=== PATIENT | male | born 1965 | race Caucasian/White ===

== ENCOUNTER 2022-05-14 17:56 | Emergency (ER) | payer OTHER, SELFPAY ==
--- NOTE | ~2022-05-14 | XR_ITS ---
EXAMINATION: XR HAND, RIGHT CLINICAL INFORMATION: Fourth digit laceration COMPARISON: None TECHNIQUE: PA, lateral, and oblique views of the right hand. FINDINGS: Soft tissue irregularity is present adjacent to the fourth distal phalanx. No adjacent fracture or definitive embedded radiopaque foreign bodies are noted. Soft tissue irregularity is most pronounced along the ventral aspect of the fourth distal phalanx. A 2 mm curvilinear density may represent an overlying or minimally embedded foreign body is noted along the cutaneous margin of the radial aspect of the distal portion of the second proximal phalanx. No arthropathic changes identified. XR/XR hand RT min 3V IMPRESSION: *Acute soft tissue inflammatory changes along the volar aspect of the fourth distal phalanx. No adjacent fractures or embedded radiopaque foreign bodies. *Indeterminate 2 mm curvilinear density which may represent an overlying or minimally embedded foreign body along the radial aspect of the second phalanx is detailed above. (See vaca image with annotation).
--- NOTE | 2022-05-14 18:31 | ED.WOUNDLAC ---
HPI - Wound/Laceration General Chief Complaint: Wound/Laceration <Elyse Wakefield CNP - Last Filed: 05/14/22 18:33> Stated Complaint: right ring finger laceration sent from urgent care <Elyse Wakefield CNP - Last Filed: 05/14/22 18:33> Time Seen by Provider: 05/14/22 20:25 <Elyse Wakefield CNP - Last Filed: 05/14/22 18:33> Source: patient <JUAN Quesada - Last Filed: 05/14/22 22:27> Mode of arrival: ambulatory <JUAN Quesada - Last Filed: 05/14/22 22:27> Limitations: no limitations <JUAN Quesada - Last Filed: 05/14/22 22:27> History of Present Illness HPI narrative: This is a 57-year-old male with no significant medical history presenting with laceration to right ring finger, patient tells me that he was at home using a brass wind instruments tube bender and he cut himself on a blade, does not report that the bleed was yusra. He tells me he was cutting PVC with this brass wind instruments tube bender earlier today. Does not think there is a foreign body within the laceration. Unsure of tetanus status. Reports bleeding from the site. Denies numbness and tingling. He tells me he was seen at urgent care where they told him they were unable to suture the laceration and he should come to the emergency department for x-rays as well to rule out fracture dislocation. <JUAN Quesada - Last Filed: 05/14/22 22:27> Related Data Home Medications: Previous Rx's Medication Instructions Recorded cephalexin 500 mg tablet 500 mg PO Q6H 10 days #40 tabs 05/14/22 <Elyse Wakefield CNP - Last Filed: 05/14/22 18:33> Allergies/Adverse Reactions: Allergies Allergy/AdvReac Type Severity Reaction Status Date / Time No Known Allergies Allergy Verified 05/14/22 18:31 <Elyse Wakefield CNP - Last Filed: 05/14/22 18:33> Review of Systems Review of Systems: Constitutional : No Fever, No Chills, Cardiovascular : No Chest Pain, No SOB Respiratory : No Dyspnea Gastrointestinal : No abdominal pain Musculoskeletal : No Joint Swelling Skin : No rash, positive skin laceration Neuro : No Weakness, No Numbness Psych : No SI/HI <JUAN Quesada - Last Filed: 05/14/22 22:27> Yes all other systems are reviewed and are negative <JUAN Quesada - Last Filed: 05/14/22 22:27> [facility] Past Medical History Attestation statement: The following information was validated with the patient. <JUAN Quesada - Last Filed: 05/14/22 22:27> Source: old records reviewed and nursing notes reviewed <JUAN Quesada - Last Filed: 05/14/22 22:27> Social History Social History: Social History Advance Directives: No Advance Directives Information Provided: No <Elyse Wakefield CNP - Last Filed: 05/14/22 18:33> Physical Exam Vital Signs: Vital Signs: Last Vital Signs Temp 98.4 F 05/14/22 18:32 Pulse 73 05/14/22 18:32 Resp 16 05/14/22 18:32 BP 138/66 05/14/22 18:32 Pulse Ox 99 05/14/22 18:32 BMI result Body Mass Index 28.3 <Elyse Wakefield CNP - Last Filed: 05/14/22 18:33> Vital Signs: Last Vital Signs Temp 98.4 F 05/14/22 18:32 Pulse 73 05/14/22 18:32 Resp 16 05/14/22 18:32 BP 138/66 05/14/22 18:32 Pulse Ox 99 05/14/22 18:32 BMI result Body Mass Index 28.3 Vital signs stable <JUAN Quesada - Last Filed: 05/14/22 22:27> Appearance: Alert.? Oriented X3.? No acute distress.? Head: Normocephalic, atraumatic, no step-offs or deformities Eyes: Pupils equal, round and reactive to light.? CVS: Pulses normal.? Respiratory: No respiratory distress.? Abdomen: Soft and nontender.? Skin: Skin warm and dry.? Normal skin color.? Normal skin turgor.?+ 3 cm linear laceration to the ventral aspect of right ring finger, unable to visualize any foreign bodies, I did percuss the area in unable to hear any foreign bodies. Transillumination test was done unable to visualize foreign bodies. 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 2+ radial pulses equal bilateral. No wrist drop. Normal capillary refill less than 2 seconds. Range of motion to all fingers. Neuro: Oriented X 3.? No motor deficit.? No sensory deficit. CN 2-12 intact <JUAN Quesada - Last Filed: 05/14/22 22:27> Course Course Course Narrative: This is an RME: Additional HPI, ROS, PE not included below will be deferred to primary provider. Patient is a 57-year-old male presents to emergency department as referral from urgent care. He states today sustained a laceration to the right ring finger from a tubing cutter while cleaning his work bench. Able to flex and extend the finger. Referred here as there was concern for bone involvement he states. Last tetanus vaccine unknown. Patient is right hand dominant. Plan: TDap, XR right hand <Elyse Wakefield CNP - Last Filed: 05/14/22 18:33> Reevaluation(s) Reevaluation #1: Area was sutured with 5 , 4-0 sutures, patient tolerated procedure well no complications. Lidocaine was used for local anesthetic. X-ray of the hand with acute soft tissue inflammatory changes along the volar aspect of the 4th distal phalanx, no adjacent fracture imbedded radiopaque foreign bodies. There is an indeterminate 2 mm curvilinear density which could represent an overlying her minimally imbedded foreign body along the radial aspect of the 2nd phalanx, I was unable to identify this on my exam. I did explain to patient that he may have a retained foreign body he verbalizes understanding of this. Due to mechanisms of injury patient will be discharged home on Keflex advised to return in 7-10 days for suture removal. Educated patient on diagnosis and treatment plan, answered all question, patient verbalizes understanding. At this time patient will be discharged home, advised to return with new or worsening symptoms. Educated on worrisome signs and symptoms and when to return. At this time I feel comfortable discharge home. <JUAN Quesada - Last Filed: 05/14/22 22:27> Time: 22:26 <JUAN Quesada - Last Filed: 05/14/22 22:27> Medications Administered Discontinued Medications Generic Name Dose Route Start Last Admin Trade Name Freq PRN Reason Stop Dose Admin Diphtheria/Tetanus/Acell Pertussis 0.5 ml 05/14/22 18:33 05/14/22 20:00 Diphth,Pertus(Acell),Tet Adult 0.5 Ml Syringe IM 05/14/22 18:34 0.5 ml .ONCE ONE Administration Lidocaine HCl 2 ml 05/14/22 21:26 05/14/22 21:45 Lidocaine Hcl 1 % Mpf 2 Ml Vial INFILTRATI 05/14/22 21:27 2 ml ONCE ONE Administration Lidocaine HCl 2 ml 05/14/22 21:28 05/14/22 21:45 Lidocaine Hcl 1 % Mpf 2 Ml Vial INFILTRATI 05/14/22 21:29 2 ml ONCE ONE Administration Lidocaine HCl 2 ml 05/14/22 21:28 05/14/22 21:45 Lidocaine Hcl 1 % Mpf 2 Ml Vial INFILTRATI 05/14/22 21:29 2 ml ONCE ONE Administration <Elyse Wakefield CNP - Last Filed: 05/14/22 18:33> Medications Administered Discontinued Medications Generic Name Dose Route Start Last Admin Trade Name Freq PRN Reason Stop Dose Admin Diphtheria/Tetanus/Acell Pertussis 0.5 ml 05/14/22 18:33 05/14/22 20:00 Diphth,Pertus(Acell),Tet Adult 0.5 Ml Syringe IM 05/14/22 18:34 0.5 ml .ONCE ONE Administration Lidocaine HCl 2 ml 05/14/22 21:26 05/14/22 21:45 Lidocaine Hcl 1 % Mpf 2 Ml Vial INFILTRATI 05/14/22 21:27 2 ml ONCE ONE Administration Lidocaine HCl 2 ml 05/14/22 21:28 05/14/22 21:45 Lidocaine Hcl 1 % Mpf 2 Ml Vial INFILTRATI 05/14/22 21:29 2 ml ONCE ONE Administration Lidocaine HCl 2 ml 05/14/22 21:28 05/14/22 21:45 Lidocaine Hcl 1 % Mpf 2 Ml Vial INFILTRATI 05/14/22 21:29 2 ml ONCE ONE Administration <JUAN Quesada - Last Filed: 05/14/22 22:27> Medical Decision Making Medical Decision Making MDM Narrative: 57-year-old male presents with laceration to right ring finger just prior to arrival. Not on blood thinners. Unsure tetanus status. Physical exam significant for Skin warm and dry.? Normal skin color.? Normal skin turgor.?+ 3 cm linear laceration to the ventral aspect of right ring finger, unable to visualize any foreign bodies, I did percuss the area in unable to hear any foreign bodies. Transillumination test was done unable to visualize foreign bodies. 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 2+ radial pulses equal bilateral. No wrist drop. Normal capillary refill less than 2 seconds. Range of motion to all fingers. Concerns for simple laceration, unlikely fracture, dislocation or retained foreign bodies however will rule out. Plan at this time is x-ray and repair with sutures. <JUAN Quesada - Last Filed: 05/14/22 22:27> Differential Diagnosis Differential Diagnoses: The differential diagnosis associated with the presentation includes <JUAN Quesada - Last Filed: 05/14/22 22:27> Concerns for simple laceration, unlikely fracture, dislocation or retained foreign bodies however will rule out. <JUAN Quesada - Last Filed: 05/14/22 22:27> Admission/Observation Consideration of admission/observation: Escalation of care including admission/observation considered <JUAN Quesada - Last Filed: 05/14/22 22:27> Not indicated <JUAN Quesada - Last Filed: 05/14/22 22:27> Independent Interpretation I performed an independent interpretation of an: Plain X-Ray (Concerns for simple laceration, unlikely fracture, dislocation or retained foreign bodies however will rule out.) <JUAN Quesada - Last Filed: 05/14/22 22:27> Core Measures AMI core measures followed: Yes <JUAN Quesada - Last Filed: 05/14/22 22:27> Measure exclusions: not indicated <JUAN Quesada - Last Filed: 05/14/22 22:27> Critical Care Time Critical Care Time Critical Care Time: No <JUAN Quesada - Last Filed: 05/14/22 22:27> Discharge Plan Discharge Clinical Impression: Laceration, Retained foreign body <Elyse Wakefield CNP - Last Filed: 05/14/22 18:33> Patient Disposition: Home, Self-Care <Elyse Wakefield CNP - Last Filed: 05/14/22 18:33> Additional Instructions: Take your medications as prescribed. If you were prescribed antibiotics today, it is important that you take your medication to their entirety, do not skip any doses, do not finish them early. Follow-up with your primary care provider this week. Return to the emergency department with new or worsening symptoms. Such as fevers, chills, chest pain, shortness of breath, nausea, vomiting, dizziness, headache, vision changes, lethargy In case of emergency call 911 Return in 7-10 days for suture removal. You got your tetanus shot today! XR/XR hand RT min 3V IMPRESSION: *Acute soft tissue inflammatory changes along the volar aspect of the fourth distal phalanx. No adjacent fractures or embedded radiopaque foreign bodies. *Indeterminate 2 mm curvilinear density which may represent an overlying or minimally embedded foreign body along the radial aspect of the second phalanx is detailed above. (See vaca image with annotation). ? As you saw on exam unable to identify foreign body there is concerns of retained foreign body will give you information for General surgery in case this laceration becomes infected, discharge or if you are able to identify foreign body. <Elyse Wakefield CNP - Last Filed: 05/14/22 18:33> Prescriptions: New cephalexin 500 mg tablet 500 mg PO Q6H 10 Days Qty: 40 0RF <Elyse Wakefield CNP - Last Filed: 05/14/22 18:33> Referrals: Keron Laguerre FNP [Primary Care Provider] - 2 days <Elyse Wakefield CNP - Last Filed: 05/14/22 18:33> Stand Alone Forms: Work/School Release <Elyse Wakefield CNP - Last Filed: 05/14/22 18:33> Interventions: ED Discharge Assessment Last Done: 05/14/22 21:47 <Elyse Wakefield CNP - Last Filed: 05/14/22 18:33> Discharge Date/Time: 05/14/22 21:49 <Elyse Wakefield CNP - Last Filed: 05/14/22 18:33>
[2022-05-14 18:32] VITALS: BP 138/66; PULSE 73; RESP 16; TEMP 36.9; O2SAT 99; BMI 28.3
[2022-05-14] MEDS: Diphth,Pertus(ACell),Tet Adult 0.5 ML SYRINGE IM (20:00)
--- NOTE | 2022-05-14 21:25 | PC.NURSE ---
right hand sutured with 5 stitches. pt maria g well no complications. pain 1/10 at this time.
[2022-05-14] MEDS: Lidocaine HCl 1 % MPF 2 ML VIAL INFILTRATI ×3 (21:45)
== END 2022-05-14 21:49 | disposition home or self-care (01) ==
PROVIDERS: Emergency Provider Emergency Medicine Emergency Medical Services; PCP Nurse Practitioner Family
DX: S61.214A Laceration without foreign body of right ring finger without damage to nail, initial encounter (principal); W27.8XXA Contact with other nonpowered hand tool, initial encounter; M79.5 Residual foreign body in soft tissue; Y93.E9 Activity, other interior property and clothing maintenance; Y92.015 Private garage of single-family (private) house as the place of occurrence of the external cause; Y99.9 Unspecified external cause status
CPT/HCPCS: 12002; 73130; 90471; 90715; 99283; 99284